=== PATIENT | female | born 1990 | race Caucasian/White ===

== ENCOUNTER 2018-02-04 01:22 | Emergency (ER) | payer OTHER ==
[~2018-02-04] VITALS: Ht 165.1 cm; Wt 64.0 kg
[2018-02-04 01:25] VITALS: Ht 165.1 cm; Wt 64.0 kg
[2018-02-04 01:59] VITALS: BP 95/63
== END 2018-02-04 02:35 | disposition home or self-care (01) ==
LOC: ED 01:22
DX: B00.89 Other herpesviral infection (principal); B00.9 Herpesviral infection, unspecified

== ENCOUNTER 2019-12-30 11:13 | Emergency (ER) | payer MEDICAID ==
[~2019-12-30] VITALS: Ht 165.1 cm; Wt 64.0 kg
[2019-12-30 11:29] VITALS: Ht 165.1 cm; Wt 64.0 kg
[2019-12-30 12:37] LABS: BASOPHIL % 0.6 % (0-2); PLATELET COUNT 228 x10^3mcL (130-400); RED CELL DISTRIBUTION WIDTH 13.8 % (11.5-14.5)
[2019-12-30 13:01] LABS: CALCIUM 9.1 mg/dL (8.5-10.1); CARBON DIOXIDE 31.9 mmol/L (21-32); CHLORIDE SERUM 102 mmol/L (98-107); CREATININE SERUM 0.9 mg/dL (0.6-1.0); GFR1 > 60 mL/min; GLUCOSE SERUM 79 mg/dL (74-106); POTASSIUM SERUM 4.3 mmol/L (3.5-5.1); SODIUM SERUM 137 mmol/L (136-145)
[2019-12-30 13:02] LABS: UA SPECIFIC GRAVITY 1.015 (1.005-1.035); microscopic required? YES; urine erythrocyte NEGATIVE (NEGATIVE)
[2019-12-30 13:06] LABS: ALBUMIN 3.7 g/dL (3.4-5.0); ALKALINE PHOSPHATASE 65 U/L (46-116); ALT/SGPT 22 U/L (14-59); AST/SGOT 12 U/L (15-37); BILIRUBIN TOTAL 0.47 mg/dL (0.20-1.00); LIPASE 140 IU/L (73-393); TOTAL PROTEIN, SERUM 7.2 g/dL (6.4-8.2)
[2019-12-30 15:08] VITALS: BP 103/57
== END 2019-12-30 15:08 | disposition home or self-care (01) ==
LOC: ED 11:13
PROVIDERS: Emergency Medicine
DX: R10.2 Pelvic and perineal pain (principal); N93.9 Abnormal uterine and vaginal bleeding, unspecified; R11.10 Vomiting, unspecified
CPT/HCPCS: 36415; 87491; 87591; J0696; Q0092